=== PATIENT | male | born 1965 | race Caucasian/White ===

== ENCOUNTER 2017-12-09 18:22 | Emergency (ER) | payer BC ==
[2017-12-09 18:47] VITALS: Ht 182.9 cm
[2017-12-09 19:50] VITALS: BP 133/74
== END 2017-12-09 19:50 | disposition home or self-care (01) ==
LOC: ED 18:22
DX: L03.011 Cellulitis of right finger (principal); I10 Essential (primary) hypertension; Z88.0 Allergy status to penicillin
CPT/HCPCS: J2001